=== PATIENT | male | born 1935 | race Caucasian/White ===

== ENCOUNTER → 2017-01-26 | Outpatient (CLI) | payer MEDICARE, OTHER ==
[~2017-01-26] MED LIST: ACID1GRA2 PEG; ALBU90AE INH; AMOX1TAB64 PO; ASPI-496 PO; ASPI-650 PEG; ATOR20TA9 PEG; BACL-19 PO; CEFD300C37 PEG; CHOL200024 PO; CHOL3000 PO; CLOP75TA PO; HYDR-3240 PO; METF850T2 PO; METR500T PEG; MIRT15TA PO; NICO1PAT10 TD; ONDA4TAB10 PO; OXYB10TA6 PO; PANT40GR PEG; POLY10DR AD; PRED20TA PO; PRED5TAB PEG; SALM50DI INH; SIMV20TA3 PO; TEMA15CA PO; TEMA30CA6 PO; TIOT18CA INH
== END | disposition home or self-care (01) ==
LOC: RAD 09:49
PROVIDERS: ATTEND Internal Medicine
DX: R13.12 Dysphagia, oropharyngeal phase (principal)
CPT/HCPCS: 74230

== ENCOUNTER 2019-10-03 09:41 | Day surgery (SDC) | payer MEDICARE, OTHER ==
[~2019-10-03] VITALS: Ht 160 cm; Wt 63.0 kg
[~2019-10-03 09:41] MED LIST changes: -ACID1GRA2 PEG; +ACID1GRA3 PEG; +ATOR20TA37 PEG; -ATOR20TA9 PEG; +METF850T10 PO; -METF850T2 PO; +NICO-485 TD; -NICO1PAT10 TD
[2019-10-03] MEDS ORDERED: LACTATED RINGERS 1,000 ML IV SCH (10:33)
[2019-10-03 10:34] VITALS: BP 132/65
[2019-10-03] MEDS ORDERED: SALM50DI INH (10:56)
[2019-10-03] MEDS ORDERED: RIVA20TA PO (10:56)
[2019-10-03] MEDS ORDERED: PIRF801T PO (10:56)
[2019-10-03] MEDS ORDERED: TIOT18CA INH (10:56)
[2019-10-03] MEDS ORDERED: PANT20TA2 PO (10:56)
[2019-10-03] MEDS ORDERED: METF850T10 PO (10:56)
[2019-10-03] MEDS ORDERED: VIT1CAPS2 PO (10:56)
[2019-10-03] MEDS ORDERED: GABA100C PO (10:56)
[2019-10-03] MEDS ORDERED: TEMA15CA6 PO (10:56)
[2019-10-03] MEDS ORDERED: ATOR40TA78 PO (10:56)
[2019-10-03] MEDS ORDERED: PROPOFOL 10 MG/ML, 20ML ONE (11:00)
[2019-10-03] MEDS ORDERED: PLEASE ENTER HEIGHT AND WEIGHT MC SCH (11:00)
[2019-10-03] MEDS ORDERED: PROPOFOL 10 MG/ML, 50ML ONE (11:00)
[2019-10-03 11:12] LABS: ANION GAP 6 mmol/L (5-15); CHLORIDE 103 mmol/L (98-107)
[2019-10-03 11:15] LABS: ALANINE AMINOTRANSFERASE 27 U/L (12-78); ALKALINE PHOSPHATASE 206 U/L (45-117); BILIRUBIN,TOTAL 0.7 mg/dL (0.2-1.0); CREATININE 1.13 mg/dL (0.7-1.3); TOTAL PROTEIN 7.4 g/dL (6.4-8.2)
[2019-10-03] MEDS ORDERED: ONDANSETRON ODT 8 MG PO PRN (11:30)
[2019-10-03] MEDS ORDERED: EPHEDRINE 50 MG/ML, 1ML IM PRN (11:30)
[2019-10-03] MEDS ORDERED: ONDANSETRON 2MG/ML, 2ML IV PRN (12:00)
[2019-10-03] MEDS ORDERED: FENTANYL PF 100 MCG/2ML IV PRN (12:00)
== END 2019-10-03 13:25 | disposition home or self-care (01) ==
LOC: OUT 09:41
PROVIDERS: ATTEND Internal Medicine
DX: R19.5 Other fecal abnormalities (principal); K57.30 Diverticulosis of large intestine without perforation or abscess without bleeding; I25.10 Atherosclerotic heart disease of native coronary artery without angina pectoris; Z88.1 Allergy status to other antibiotic agents
CPT/HCPCS: 45378; 80053; 82962; 93005; J2704; J7120

== ENCOUNTER → 2021-02-10 | Outpatient (CLI) | payer MEDICARE, OTHER ==
[~2021-02-10] MED LIST changes: -ASPI-650 PEG; +ASPI325T20 PEG; +ATOR40TA78 PO; +GABA100C PO; +HYDR-2214 PO; -HYDR-3240 PO; +MIRT-37 PO; -MIRT15TA PO; +PANT20TA2 PO; +PIRF801T PO; +RIVA20TA PO; -SALM50DI INH; +SALM50DI2 INH; +SIMV20TA19 PO; -SIMV20TA3 PO; +TEMA15CA6 PO; +VIT1CAPS2 PO
== END | disposition home or self-care (01) ==
LOC: RAD 10:16
PROVIDERS: ATTEND Internal Medicine Geriatric Medicine
DX: R13.10 Dysphagia, unspecified (principal)
CPT/HCPCS: 74230